=== PATIENT | male | born 1980 | race Native Hawaiian/Other Pacific Islander ===

== ENCOUNTER → 2017-04-17 | Outpatient (REF) ==
[~2017-04-17] MED LIST: NO HOME MEDICATIONS
== END ==
LOC: WSOH 08:02
DX: Z02.4 Encounter for examination for driving license (principal)

== ENCOUNTER → 2018-06-29 | Outpatient (CLI) | payer BC | LOC: COL.VAS 11:03 | DX: I77.819 Aortic ectasia, unspecified site (principal); R55 Syncope and collapse ==

== ENCOUNTER 2021-11-27 21:10 | Emergency (ER) | payer BC ==
[2021-11-27 23:25] VITALS: TEMP 97.9
[2021-11-28 00:53] VITALS: BP 137/93; PULSE 69
== END 2021-11-28 00:53 | disposition home or self-care (01) ==
LOC: COL.ER 21:10
DX: R05.9 Cough, unspecified (principal)

== ENCOUNTER → 2021-12-04 | Outpatient (CLI) | payer BC ==
[2021-12-04 20:45] VITALS: BP 145/95; PULSE 81; TEMP 98
== END ==
LOC: COL.ER 20:41
DX: Z48.02 Encounter for removal of sutures (principal)